=== PATIENT | male | born 1985 | race African-American/Black ===

== ENCOUNTER 2022-01-01 00:51 | Emergency (ER) | payer SELFPAY ==
[~2022-01-01] VITALS: Ht 180.3 cm; Wt 81.8 kg
[2022-01-01 00:53] VITALS: TEMP 98.4
[2022-01-01 06:50] VITALS: BP 146/82; PULSE 87
== END 2022-01-01 06:50 | disposition home or self-care (01) ==
LOC: COL.ER 00:51
DX: S09.90XA Unspecified injury of head, initial encounter (principal); S01.111A Laceration without foreign body of right eyelid and periocular area, initial encounter; Y04.2XXA Assault by strike against or bumped into by another person, initial encounter; Y92.89 Other specified places as the place of occurrence of the external cause